=== PATIENT | male | born 1955 | race Hispanic/Latino ===

== ENCOUNTER 2024-08-06 10:30 | Emergency (ER) | payer OTHER ==
[~2024-08-06] VITALS: Ht 170.2 cm; Wt 61.0 kg
[2024-08-06] MEDS ORDERED: traMADol HCL 50 MG/TAB PO ONE (10:45)
[2024-08-06] MEDS ORDERED: LISINOPRIL5 MG PO (10:58)
[2024-08-06] MEDS ORDERED: CELEBREX100 M1 PO (10:59)
[2024-08-06 11:14] LABS: URINE BILIRUBIN - DIPSTICK Negative (NEGATIVE); URINE BLOOD DIPSTICK Small (NEGATIVE); URINE GLUCOSE - DIPSTICK Negative (NEGATIVE); URINE KETONE Negative (NEGATIVE); URINE LEUK ESTERASE Negative (NEGATIVE); URINE NITRITE - DIPSTICK Negative (Negative); URINE PROTEIN - DIPSTICK Negative (NEG-TRACE); URINE SPECIFIC GRAVITY 1.015; URINE UROBILINOGEN - DIPSTICK 0.2 E.U./dL (0.2)
[2024-08-06 11:18] LABS: URINE COLOR Yellow
[2024-08-06 11:23] LABS: URINE RBC 0-2 RBC/hpf (0-5)
[2024-08-06 11:54] VITALS: BP 152/88
[2024-08-06 12:09] LABS: EOS% 8.8 % (0-8); HEMATOCRIT 41.8 % (39.0-50.0); HEMOGLOBIN 13.9 g/dl (14.0-18.0); IMMATURE GRANULOCYTES 0.2 % (0.0-5.0); LYMPH% 21.8 % (15-41); MEAN CELL VOLUME 90.9 fL CALC (80.0-100.0); MEAN CORPUSCULAR HGB 30.2 pG CALC (26.0-32.0); MEAN CORPUSCULAR HGB CONC 33.3 g/dL CAL (32.0-36.0); MONO% 8.4 % (2-13); NEUT# 2.94 thou/uL (1.82-7.42); NEUT% 59.8 % (42-76); RED BLOOD COUNT 4.6 mill/uL (4.70-6.10); RED CELL DISTRI WIDTH 12.9 % (11.5-15.5)
[2024-08-06 12:25] LABS: BILIRUBIN, TOTAL 0.8 mg/dL (0.2-1.3); CREATININE 0.9 mg/dL (0.7-1.3); TOTAL PROTEIN 6.8 g/dL (6.3-8.2)
[2024-08-06 12:30] VITALS: BP 129/75
[2024-08-06 13:30] VITALS: BP 135/81
[2024-08-06 14:00] VITALS: BP 134/86
[2024-08-06 14:30] VITALS: BP 138/78
[2024-08-06] MEDS ORDERED: NAPROXEN500 MG PO ×2 (14:55→15:00)
[2024-08-06] MEDS ORDERED: TRAMADOL HYDROC50 M1 PO ×2 (14:55→14:59)
[2024-08-06 15:03] VITALS: BP 138/78
[2024-08-06] MEDS ORDERED: HYDROcodone 5 MG/Acetaminophen 325 MG/COMBO PO ONE (15:10)
[2024-08-06] MEDS ORDERED: NAPROXEN 250 MG/TAB PO ONE (15:10)
== END 2024-08-06 15:08 | disposition home or self-care (01) | DRG 605 ==
LOC: ED 10:30
PROVIDERS: Nurse Practitioner
DX: S20.211A Contusion of right front wall of thorax, initial encounter (principal); S30.1XXA Contusion of abdominal wall, initial encounter; S60.211A Contusion of right wrist, initial encounter; S50.11XA Contusion of right forearm, initial encounter; S60.221A Contusion of right hand, initial encounter; S30.811A Abrasion of abdominal wall, initial encounter; I10 Essential (primary) hypertension; W18.30XA Fall on same level, unspecified, initial encounter; Y93.H9 Activity, other involving exterior property and land maintenance, building and construction; Y92.007 Garden or yard of unspecified non-institutional (private) residence as the place of occurrence of the external cause
CPT/HCPCS: Q9967